=== PATIENT | male | born 1960 | race African-American/Black ===

== ENCOUNTER 2019-07-28 13:17 | Inpatient (IN) | payer OTHER ==
[2019-07-28 14:14] VITALS: BMI 23.4
--- NOTE | 2019-07-28 16:45 | HP ---
CIWA Score Nausea/Vomitin Muscle Tremors: 3 Anxiety: 2 Agitation: 2 Paroxysmal Sweats: 2 Orientation: 0-Oriented Tacttile Disturbances: 2-Mild Itch/Numbness/Burn Auditory Disturbances: 0-None Visual Disturbances: 0-None Headache: 2-Mild CIWA-Ar Total Score: 15 - Admission Criteria OASAS Guidelines: Admission for Medically Managed Detox: Requires at least one of the followin. CIWA greater than 12 2. Seizures within the past 24 hours 3. Delirium tremens within the past 24 hours 4. Hallucinations within the past 24 hours 5. Acute intervention needed for co occurring medical disorder 6. Acute intervention needed for co occurring psychiatric disorder 7. Severe withdrawal that cannot be handled at a lower level of care (continued vomiting, continued diarrhea, abnormal vital signs) requiring intravenous medication and/or fluids 8. Patient presents the following: CIWA greater than 12 Admission Criteria Met: Admission criteria met Admission ROS [facility] Chief Complaint: I am here for detox from alcohol Allergies/Adverse Reactions: Allergies Allergy/AdvReac Type Severity Reaction Status Date / Time No Known Allergies Allergy Verified 07/28/19 14:00 History of Present Illness: 58 year old man presents or detox from alcohol, he reports his last treatment was 2 years ago in [place]. He denies blackouts or seizures. Patient was seen in the ED at [facility] this morning for detox and kidney pain , he was hydrated and sent here for detox. Patient reports chronic kidney stone for which he was hospitalized for 4 days about 6 weeks ago. Exam Limitations: No Limitations - Ebola screening Have you traveled outside of the country in the last 21 days: No (N) Have you had contact with anyone from an Ebola affected area: No Have you been sick,other than usual withdrawal symptoms: No Do you have a fever: No - Review of Systems Constitutional: Loss of Appetite, Changes in sleep EENT: reports: No Symptoms Reported Respiratory: reports: No Symptoms reported Cardiac: reports: No Symptoms Reported GI: reports: Diarrhea, Nausea, Vomiting : reports: No Symptoms Reported Musculoskeletal: reports: Back Pain, Joint Pain, Muscle Pain Integumentary: reports: No Symptoms Reported Neuro: reports: Headache, Numbness, Tremors Endocrine: reports: No Symptoms Reported Hematology: reports: No Symptoms Reported Psychiatric: reports: No Sypmtoms Reported Other Systems: Reviewed and Negative Patient History - Patient Medical History Hx Anemia: No Hx Asthma: No Hx Chronic Obstructive Pulmonary Disease (COPD): No Hx Cancer: No Hx Cardiac Disorders: No Hx Congestive Heart Failure: No Hx Hypertension: Yes Hx Hypercholesterolemia: Yes Hx Pacemaker: No HX Cerebrovascular Accident: No Hx Seizures: No Hx Dementia: No Hx Diabetes: No Hx Gastrointestinal Disorders: No Hx Liver Disease: No Hx Genitourinary Disorders: Yes (BPH) Hx Sexually Transmitted Disorders: No Hx Renal Disease (ESRD): No Hx Thyroid Disease: No Hx Human Immunodeficiency Virus (HIV): Yes Hx Hepatitis C: No Hx Depression: No Hx Suicide Attempt: No Hx Bipolar Disorder: No Hx Schizophrenia: No - Patient Surgical History Past Surgical History: Yes Hx Neurologic Surgery: No Hx Cataract Extraction: No Hx Cardiac Surgery: No Hx Lung Surgery: No Hx Breast Surgery: No Hx Breast Biopsy: No Hx Abdominal Surgery: No Hx Appendectomy: No Hx Cholecystectomy: No Hx Genitourinary Surgery: No Hx Section: No Hx Orthopedic Surgery: Yes (left knee replacement in 2012) Anesthesia Reaction: No - PPD History Previous Implant?: Yes Documented Results: Negative w/o proof Implanted On Prior R Admission?: No PPD to be Administered?: Yes - Smoking Cessation Smoking history: Current every day smoker Have you smoked in the past 12 months: Yes Aproximately how many cigarettes per day: 10 Hx Chewing Tobacco Use: No Initiated information on smoking cessation: Yes 'Breaking Loose' booklet given: 07/28/19 - Substances abused Alcohol Substance route: Oral Frequency: Daily Amount used: 1pint of Rosangela Age of first use: 23 Date of last use: 07/27/19 Crack Substance route: Smoking Frequency: Daily Amount used: $100 Age of first use: 33 Date of last use: 07/27/19 Admission Physical Exam BHS - Vital Signs Vital Signs: Vital Signs - 24 hr 07/28/19 14:10 Temperature 97.0 F L Pulse Rate 66 Respiratory 14 Rate Blood Pressure 131/69 - Physical General Appearance: Yes: No Apparent Distress HEENTM: Yes: EOMI, Hearing grossly Normal, Normal ENT Inspection, Normocephalic , Normal Voice, Pharynx Normal Respiratory: Yes: Chest Non-Tender, Lungs Clear, Normal Breath Sounds, No Respiratory Distress Neck: Yes: No masses,lesions,Nodules, Supple Breast: Yes: Breast Exam Deferred Cardiology: Yes: Regular Rhythm, Regular Rate, S1, S2 Abdominal: Yes: Normal Bowel Sounds, Non Tender, Soft Genitourinary: Yes: Hesitency Back: Yes: Muscle Spasm Musculoskeletal: Yes: Back pain, Muscle Pain Extremities: Yes: Tremors 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 NML intact, Fully Oriented, Alert, Normal Mood/ Affect, Normal Response Integumentary: Yes: Diaphoresis Lymphatic: Yes: Within Normal Limits - Diagnostic (1) Uncomplicated alcohol dependence Current Visit: Yes Status: Acute (2) Nicotine dependence Current Visit: Yes Status: Acute Qualifiers: Nicotine product type: cigarettes Substance use status: uncomplicated Qualified Code(s): F17.210 - Nicotine dependence, cigarettes, uncomplicated (3) HTN (hypertension) Current Visit: Yes Status: Acute Qualifiers: Hypertension type: essential hypertension Qualified Code(s): I10 - Essential (primary) hypertension (4) Cocaine abuse Current Visit: Yes Status: Acute (5) HIV 2 (human immunodeficiency virus type 2) Current Visit: Yes Status: Acute (6) Hypercholesteremia Current Visit: Yes Status: Acute Cleared for Admission [facility] - Detox or Rehab [facility] Level of Care: Medically Managed Detox Regimen/Protocol: Librium Claeared for Rehab Admission: No Breathalyzer - Breathalyzer Breathalyzer: 0 Urine Drug Screen - Test Device Lot number: [id number] Expiration date: 04/06/21 - Control Is test valid?: Yes - Results Drug screen NEGATIVE: No Urine drug screen results: [facility]ocaine Inpatient Rehab Admission - Rehab Decision to Admit Inpatient rehab admission?: No
[2019-07-28] MEDS ORDERED: MELATONIN 5 MG TABLETS PO PRN (16:54)
[2019-07-28] MEDS ORDERED: chlordiazePOXIDE HCL 25 MG CAPSULE PO ONE (16:54)
[2019-07-28] MEDS ORDERED: MENTHOL/PHENOL 1 EACH UD MM PRN (16:54)
[2019-07-28] MEDS ORDERED: BISMUTH SUBSALICYLATE 524 MG/30 ML UD PO PRN (16:54)
[2019-07-28] MEDS ORDERED: MAGNESIUM CITRATE 300 ML BOTTLE PO PRN (16:54)
[2019-07-28] MEDS ORDERED: METHOCARBAMOL 500 MG TABLET PO PRN (16:54)
[2019-07-28] MEDS ORDERED: chlordiazePOXIDE HCL 10 MG CAPSULE PO PRN (16:54)
[2019-07-28] MEDS ORDERED: IBUPROFEN 400 MG TABLET (FP) PO PRN (16:54)
[2019-07-28] MEDS ORDERED: hydrOXYzine PAMOATE 25 MG CAPSULE (FP) PO PRN (16:54)
[2019-07-28] MEDS ORDERED: ACETAMINOPHEN 325 MG TABLET (FP) PO PRN ×2 (16:54)
[2019-07-28] MEDS ORDERED: MAGNESIUM HYDROX 2400MG/30ML ORAL SUSPENSION 30 ML CUP PO PRN (16:54)
[2019-07-28] MEDS ORDERED: MAG HYDROX/AL HYDROX/SIMETH 30 ML UNIT-DOSE CUP PO PRN (16:54)
[2019-07-28] MEDS ORDERED: NICOTINE POLACRILEX 4 MG GUM BUC PRN (16:54)
[2019-07-28] MEDS: ATORVASTATIN CA 10 MG TABLET (FP) PO SCH (23:04)
[2019-07-28] MEDS: chlordiazePOXIDE HCL 25 MG CAPSULE PO SCH (23:04)
[2019-07-28] MEDS: THIAMINE HCL 100 MG TABLET (FP) PO SCH (23:06)
[2019-07-29] MEDS: chlordiazePOXIDE HCL 25 MG CAPSULE PO SCH ×3 (05:53→22:13)
[2019-07-29] MEDS: PRENATAL VITAMINS W/ FOLIC ACID TABLET (FP) PO SCH (09:58)
[2019-07-29] MEDS: TAMSULOSIN HCL 0.4 MG CAP PO SCH (09:58)
[2019-07-29] MEDS ORDERED: PATIENT'S OWN MEDICATION (NON-FORMULARY) (Pravastatin Sodium 40 MG) PO SCH (10:00)
--- NOTE | 2019-07-29 15:07 | PN ---
[facility] CIWA - CIWA Score Nausea/Vomitin-Mild Nausea/No Vomiting Muscle Tremors: 4-Moderate,w/Arms Extend Anxiety: 4-Mod. Anxious/Guarded Agitation: 2 Paroxysmal Sweats: 3 Orientation: 0-Oriented Tacttile Disturbances: 0-None Auditory Disturbances: 0-None Visual Disturbances: 0-None Headache: 0-None Present CIWA-Ar Total Score: 14 S Progress Note (SOAP) Subjective: Diarrhea, interrupted sleep Objective: 07/29/19 15:03 Last Vital Signs Temp Pulse Resp BP Pulse Ox 98.2 F 73 18 144/73 07/29/19 13:20 07/29/19 13:20 07/29/19 13:20 07/29/19 13:20 Elevated b/p 144/73 (has htn, on medication) No admission lab results available Assessment: 07/29/19 15:05 Withdrawal sxs Plan: Continue detox Encouraged PO water hydration HTN: continue HCTZ, monitor b/p
[2019-07-29] MEDS: HYDROCHLOROTHIAZIDE 50 MG TABLET PO SCH (16:17)
[2019-07-29] MEDS: ATORVASTATIN CA 10 MG TABLET (FP) PO SCH (22:11)
[2019-07-29] MEDS: THIAMINE HCL 100 MG TABLET (FP) PO SCH (22:11)
[2019-07-30] MEDS: chlordiazePOXIDE 5 MG CAPSULE PO SCH ×3 (05:47→21:03)
--- NOTE | 2019-07-30 09:50 | PN ---
S CIWA - CIWA Score Nausea/Vomitin-Mild Nausea/No Vomiting Muscle Tremors: 2 Anxiety: 2 Agitation: 2 Paroxysmal Sweats: No Perspiration Orientation: 0-Oriented Tacttile Disturbances: 0-None Auditory Disturbances: 0-None Visual Disturbances: 0-None Headache: 1-Very Mild CIWA-Ar Total Score: 8 BHS Progress Note (SOAP) Subjective: alert,irritable,anxious,interrupted sleep,pain in the body Objective: 07/30/19 09:45 Vital Signs Temperature 98.1 F 07/30/19 06:00 Pulse Rate 65 07/30/19 06:00 Respiratory Rate 18 07/30/19 06:00 Blood Pressure 137/70 07/30/19 06:00 O2 Sat by Pulse Oximetry (%) 07/30/19 11:56 labs pending Assessment: 07/30/19 11:56 withdrawal symptom Plan: continue detox librium regimen
[2019-07-30] MEDS: HYDROCHLOROTHIAZIDE 50 MG TABLET PO SCH (11:22)
[2019-07-30] MEDS: PRENATAL VITAMINS W/ FOLIC ACID TABLET (FP) PO SCH (11:22)
[2019-07-30] MEDS: TAMSULOSIN HCL 0.4 MG CAP PO SCH (11:22)
[2019-07-30] MEDS: PREZCOBIX PO SCH (11:22)
[2019-07-30] MEDS: PATIENT'S OWN MEDICATION (NON-FORMULARY) (Abacavir Sulfate/Lamivudine [Abacavir-Lamivudine PO SCH (11:23)
[2019-07-30 12:41] LABS: HEMATOCRIT 34.4 % (35.4-49); HEMOGLOBIN 11.3 GM/dL (11.7-16.9); MCH 32.9 pg (25.7-33.7); MCHC 32.9 g/dl (32.0-35.9); MEAN CELL VOLUME 99.8 fl (80-96); MEAN PLT VOLUME 10.7 fl (7.5-11.1); PLATELET COUNT 160 K/MM3 (134-434); RBC 3.44 M/mm3 (4.00-5.60); RDW 14.2 % (11.9-15.9); WHITE BLOOD COUNT 5.6 K/mm3 (4.0-10.0)
[2019-07-30 12:53] LABS: ALBUMIN 2.8 g/dl (3.4-5.0); BILIRUBIN,TOTAL 0.2 mg/dL (0.2-1); BLOOD UREA NITROGEN 14.8 mg/dL (7-18); CALCIUM 8.8 mg/dL (8.5-10.1); CREATININE 1.2 mg/dL (0.55-1.3); POTASSIUM 3.8 mmol/L (3.5-5.1); TOT PROT 5.5 g/dl (6.4-8.2)
[2019-07-30] MEDS: THIAMINE HCL 100 MG TABLET (FP) PO SCH (21:03)
[2019-07-30] MEDS: ATORVASTATIN CA 10 MG TABLET (FP) PO SCH (21:03)
[2019-07-31] MEDS ORDERED: chlordiazePOXIDE HCL 10 MG CAPSULE PO PRN
[2019-07-31] MEDS: chlordiazePOXIDE HCL 10 MG CAPSULE PO SCH ×3 (05:32→21:11)
[2019-07-31] MEDS: TAMSULOSIN HCL 0.4 MG CAP PO SCH (10:03)
[2019-07-31] MEDS: HYDROCHLOROTHIAZIDE 25 MG TABLET (FP) PO SCH (10:03)
[2019-07-31] MEDS: PRENATAL VITAMINS W/ FOLIC ACID TABLET (FP) PO SCH (10:03)
[2019-07-31] MEDS: PREZCOBIX PO SCH (10:04)
[2019-07-31] MEDS: PATIENT'S OWN MEDICATION (NON-FORMULARY) (Abacavir Sulfate/Lamivudine [Abacavir-Lamivudine PO SCH (11:06)
--- NOTE | 2019-07-31 16:17 | PN ---
S CIWA - CIWA Score Nausea/Vomitin-No Nausea/No Vomiting Muscle Tremors: None Anxiety: 3 Agitation: 2 Paroxysmal Sweats: No Perspiration Orientation: 0-Oriented Tacttile Disturbances: 0-None Auditory Disturbances: 1-Very Mild Visual Disturbances: 0-None Headache: 0-None Present CIWA-Ar Total Score: 6 BHS Progress Note (SOAP) Subjective: Body Aches. Objective: PATIENT A & O X 3, OBSERVED AMBULATING ON DETOX UNIT UNASSISTED. IN NO ACUTE DISTRESS. 07/31/19 16:15 Vital Signs Temperature 98.1 F 07/31/19 13:37 Pulse Rate 79 07/31/19 13:37 Respiratory Rate 18 07/31/19 13:37 Blood Pressure 150/95 07/31/19 13:37 O2 Sat by Pulse Oximetry (%) Laboratory Tests 07/30/19 07/30/19 07/30/19 10:30 10:30 10:30 WBC 5.6 RBC 3.44 L Hgb 11.3 L Hct 34.4 L MCV 99.8 H MCH 32.9 MCHC 32.9 RDW 14.2 Plt Count 160 MPV 10.7 Sodium 144 Potassium 3.8 Chloride 112 H Carbon Dioxide 28 Anion Gap 5 L BUN 14.8 Creatinine 1.2 Est GFR (CKD-EPI)AfAm 75.72 Est GFR (CKD-EPI)NonAf 65.33 Random Glucose 128 H Calcium 8.8 Total Bilirubin 0.2 AST 16 ALT 30 Alkaline Phosphatase 69 Total Protein 5.5 L Albumin 2.8 L RPR Titer Nonreactive LABS NOTED. RESULTS OF DETOX ADMISSION QFT /TB TEST PENDING. 07/31/19 16:16 Assessment: 07/31/19 16:16 WITHDRAWAL SYMPTOMS. ANEMIA. 07/31/19 16:17 Plan: CONTINUE DETOX. PATIENT IS CURRENTLY RECEIVING DAILY MVI CONTAINING B VITAMINS AND IRON WHILE ADMITTED FOR DETOX. PATIENT SCHEDULED FOR D/C FROM DETOX UNIT TOMORROW.
[2019-07-31] MEDS: THIAMINE HCL 100 MG TABLET (FP) PO SCH (21:10)
[2019-07-31] MEDS: ATORVASTATIN CA 10 MG TABLET (FP) PO SCH (21:11)
[2019-08-01] MEDS ORDERED: chlordiazePOXIDE HCL 10 MG CAPSULE PO ONE (05:00)
[2019-08-01 08:51] VITALS: BP 141/79; PULSE 70; TEMP 97.6
--- NOTE | 2019-08-01 09:36 | DS ---
[facility] Detox Discharge Summary Admission Date: 07/28/19 Discharge Date: 08/01/19 - History Present History: Alcohol Dependence, Cocaine Dependence - Physical Exam Results Vital Signs: Vital Signs Temperature 97.6 F 08/01/19 08:51 Pulse Rate 70 08/01/19 08:51 Respiratory Rate 18 08/01/19 08:51 Blood Pressure 141/79 08/01/19 08:51 O2 Sat by Pulse Oximetry (%) - Treatment Hospital Course: Detox Protocol Followed, Detoxed Safely, Responded well, Discharged Condition Good, Rehab Referral Accepted Patient has Accepted a Rehab Referral to: referral provided - Medication Discharge Medications: Ambulatory Orders Abacavir Sulfate/Lamivudine [Abacavir-Lamivudine 600-300 mg] 600 mg PO DAILY Hydrochlorothiazide [Hctz -] 50 mg PO DAILY 07/28/19 Pravastatin Sodium [Pravachol (Nf)] 40 mg PO DAILY 07/28/19 Prezcobix 800 mg-150 mg Tablet 800 mg PO DAILY 07/28/19 Tamsulosin HCl 0.4 mg PO DAILY 07/28/19 - Diagnosis (1) Anemia Current Visit: Yes Status: Chronic Qualifiers: Anemia type: unspecified type Qualified Code(s): D64.9 - Anemia, unspecified (2) Cocaine abuse Current Visit: Yes Status: Chronic (3) HIV 2 (human immunodeficiency virus type 2) Current Visit: Yes Status: Chronic (4) HTN (hypertension) Current Visit: Yes Status: Acute Qualifiers: Hypertension type: essential hypertension Qualified Code(s): I10 - Essential (primary) hypertension (5) Hypercholesteremia Current Visit: Yes Status: Acute (6) Nicotine dependence Current Visit: Yes Status: Acute Qualifiers: Nicotine product type: cigarettes Substance use status: uncomplicated Qualified Code(s): F17.210 - Nicotine dependence, cigarettes, uncomplicated (7) Uncomplicated alcohol dependence Current Visit: Yes Status: Chronic - AMA Did Patient Leave Against Medical Advice: No
[2019-08-01] MEDS: HYDROCHLOROTHIAZIDE 25 MG TABLET (FP) PO SCH (09:52)
[2019-08-01] MEDS: PRENATAL VITAMINS W/ FOLIC ACID TABLET (FP) PO SCH (09:52)
[2019-08-01] MEDS: TAMSULOSIN HCL 0.4 MG CAP PO SCH (09:52)
[2019-08-01] MEDS: PATIENT'S OWN MEDICATION (NON-FORMULARY) (Abacavir Sulfate/Lamivudine [Abacavir-Lamivudine PO SCH (09:55)
[2019-08-01] MEDS: PREZCOBIX PO SCH (09:55)
== END 2019-08-01 11:38 | disposition home or self-care (01) | DRG 897 ==
LOC: EDBD 13:17 → YASAS 13:17 → Y6N 17:31
PROVIDERS: ADMIT Surgery; ATTEND Surgery
PROC: HZ2ZZZZ Detoxification Services for Substance Abuse Treatment (ICD-10-PCS; principal; 2019-07-28)
DX: F10.230 Alcohol dependence with withdrawal, uncomplicated (principal); B97.35 Human immunodeficiency virus, type 2 [HIV 2] as the cause of diseases classified elsewhere; F14.10 Cocaine abuse, uncomplicated; F17.210 Nicotine dependence, cigarettes, uncomplicated; I10 Essential (primary) hypertension; E78.00 Pure hypercholesterolemia, unspecified; D64.9 Anemia, unspecified; N40.0 Benign prostatic hyperplasia without lower urinary tract symptoms; Z96.651 Presence of right artificial knee joint
CPT/HCPCS: 36415; 80053; 85027; 86480; 86593

== ENCOUNTER 2019-10-19 11:51 | Inpatient (IN) | payer OTHER ==
[2019-10-19 12:56] VITALS: BMI 24.2
--- NOTE | 2019-10-19 13:48 | HP ---
CIWA Score Nausea/Vomitin-No Nausea/No Vomiting Muscle Tremors: None Anxiety: 0-No Anxiety, at Ease Agitation: 0-Normal Activity Paroxysmal Sweats: No Perspiration Orientation: 1-Uncertain about Date Tacttile Disturbances: 0-None Auditory Disturbances: 0-None Visual Disturbances: 0-None Headache: 0-None Present CIWA-Ar Total Score: 1 - Admission Criteria OASAS Guidelines: Admission for Medically Managed Detox: Requires at least one of the followin. CIWA greater than 12 2. Seizures within the past 24 hours 3. Delirium tremens within the past 24 hours 4. Hallucinations within the past 24 hours 5. Acute intervention needed for co occurring medical disorder 6. Acute intervention needed for co occurring psychiatric disorder 7. Severe withdrawal that cannot be handled at a lower level of care (continued vomiting, continued diarrhea, abnormal vital signs) requiring intravenous medication and/or fluids 8. Admitting History and Physical - Smoking History Smoking history: Current every day smoker Have you smoked in the past 12 months: Yes Aproximately how many cigarettes per day: 10 Admission ROS [facility] Allergies/Adverse Reactions: Allergies Allergy/AdvReac Type Severity Reaction Status Date / Time No Known Allergies Allergy Verified 10/19/19 12:42 History of Present Illness: pt here for rehab from cocaine and etoh use ,latest use 2 days ago , went to [facility], reports had " a few of vodka " the night prior to going to the hospital 10/17/19 , reports up to 1 pint /day started 2 years ago after he stopped working, progressively increased , denies seizures , blackouts , occasional tremors . reports he was in [facility] for detox and rehab when he had pain and was taken to the ER dx w/ nephrolithaisis, has scheduled surgery for 10/25/19 . cocaine :reports occasional use tobacco : occasional denies other illicits PMHX : tkr Exam Limitations: No Limitations - Ebola screening Have you traveled outside of the country in the last 21 days: No Have you had contact with anyone from an Ebola affected area: No Do you have a fever: No - Review of Systems Constitutional: No Symptoms Reported EENT: reports: Other (glasses , denies dysphagia) Respiratory: reports: No Symptoms reported Cardiac: reports: No Symptoms Reported GI: reports: No Symptoms Reported : reports: Dysuria (slow stream), Flank Pain Musculoskeletal: reports: No Symptoms Reported Integumentary: reports: No Symptoms Reported Neuro: reports: No Symptoms reported Endocrine: reports: No Symptoms Reported Hematology: reports: No Symptoms Reported Psychiatric: reports: Orientated x3 Patient History - Patient Medical History Hx Anemia: No Hx Asthma: No Hx Chronic Obstructive Pulmonary Disease (COPD): No Hx Cancer: No Hx Cardiac Disorders: No Hx Congestive Heart Failure: No Hx Hypertension: Yes Hx Hypercholesterolemia: Yes Hx Pacemaker: No HX Cerebrovascular Accident: No Hx Seizures: No Hx Dementia: No Hx Diabetes: No Hx Gastrointestinal Disorders: No Hx Liver Disease: No Hx Genitourinary Disorders: No Hx Sexually Transmitted Disorders: No Hx Renal Disease (ESRD): No Hx Thyroid Disease: No Hx Human Immunodeficiency Virus (HIV): Yes Hx Hepatitis C: No Hx Depression: No Hx Suicide Attempt: No Hx Bipolar Disorder: No Hx Schizophrenia: No - Patient Surgical History Past Surgical History: Yes Hx Neurologic Surgery: No Hx Cataract Extraction: No Hx Cardiac Surgery: No Hx Lung Surgery: No Hx Breast Surgery: No Hx Breast Biopsy: No Hx Abdominal Surgery: No Hx Appendectomy: No Hx Cholecystectomy: No Hx Genitourinary Surgery: No Hx Section: No Hx Orthopedic Surgery: Yes (left knee replacement in 2013) Anesthesia Reaction: No - Smoking Cessation Smoking history: Current some day smoker Have you smoked in the past 12 months: Yes Aproximately how many cigarettes per day: 10 Hx Chewing Tobacco Use: No Initiated information on smoking cessation: Yes 'Breaking Loose' booklet given: 10/19/19 - Substances abused Alcohol Substance route: Oral Frequency: Daily Amount used: 1pint of VODKA/GIN Age of first use: 23 Date of last use: 10/17/19 Crack Substance route: Smoking Frequency: 1-2 times per week Amount used: $20 Age of first use: 33 Date of last use: 10/17/19 Admission Physical Exam BHS - Vital Signs Vital Signs: Vital Signs - 24 hr 10/19/19 10/19/19 12:36 13:10 Temperature 97.9 F 97.9 F Pulse Rate 68 68 Respiratory 20 20 Rate Blood Pressure 133/72 133/72 - Physical General Appearance: Yes: No Apparent Distress HEENTM: Yes: EOMI, Hearing grossly Normal, Normocephalic, Normal Voice Respiratory: Yes: Chest Non-Tender, Lungs Clear, Normal Breath Sounds, No Respiratory Distress, No Accessory Muscle Use Neck: Yes: No masses,lesions,Nodules, Trachea in good position Cardiology: Yes: Regular Rhythm, Regular Rate, S1, S2 Abdominal: Yes: Non Tender, Soft Musculoskeletal: Yes: Gait Steady Extremities: Yes: Normal Range of Motion, Non-Tender Neurological: Yes: Alert, Normal Mood/Affect Integumentary: Yes: Warm - Diagnostic (1) Alcohol dependence Current Visit: Yes Status: Chronic Qualifiers: Substance use status: uncomplicated Qualified Code(s): F10.20 - Alcohol dependence, uncomplicated (2) Cocaine abuse, episodic use Current Visit: Yes Status: Chronic Breathalyzer - Breathalyzer Breathalyzer: 0 Urine Drug Screen - Test Device Lot number: [id number] Expiration date: 06/06/21 - Control Is test valid?: Yes - Results Drug screen NEGATIVE: No Urine drug screen results: [facility]-Cocaine Inpatient Rehab Admission - Rehab Decision to Admit Inpatient rehab admission?: Yes - Initial Determination Are CD services needed?: Yes Free of communicable disease: Yes Not in need of hospitalization: Yes - Rehab Admission Criteria Previous failed treatment: No Poor recovery environment: No Comorbidities: Yes Lacks judgement: Yes Patient is meeting Inpatient Rehab admission criteria:: Yes
[2019-10-19] MEDS ORDERED: PATIENT'S OWN MEDICATION (NON-FORMULARY) (Abacavir Sulfate/Lamivudine [Abacavir-Lamivudine PO SCH (14:00)
[2019-10-19] MEDS ORDERED: hydrOXYzine PAMOATE 25 MG CAPSULE (FP) PO PRN (14:11)
[2019-10-19] MEDS ORDERED: MENTHOL/PHENOL 1 EACH UD MM PRN (14:11)
[2019-10-19] MEDS ORDERED: MAG HYDROX/AL HYDROX/SIMETH 30 ML UNIT-DOSE CUP PO PRN (14:11)
[2019-10-19] MEDS ORDERED: ACETAMINOPHEN 325 MG TABLET (FP) PO PRN (14:11)
[2019-10-19] MEDS ORDERED: P-EPHED 60MG/TRIPROLIDI 2.5MG TABLET PO PRN (14:11)
[2019-10-19] MEDS ORDERED: MAGNESIUM HYDROX 2400MG/30ML ORAL SUSPENSION 30 ML CUP PO PRN (14:11)
[2019-10-19] MEDS ORDERED: LOPERAMIDE HCL 2 MG CAPSULE PO PRN (14:11)
[2019-10-19] MEDS ORDERED: guaiFENesin 200 MG/10 ML 10 ML UNIT-DOSE CUPS PO PRN (14:11)
[2019-10-19] MEDS ORDERED: MAGNESIUM CITRATE 300 ML BOTTLE PO PRN (14:11)
[2019-10-19] MEDS ORDERED: IBUPROFEN 400 MG TABLET (FP) PO PRN (14:11)
[2019-10-19] MEDS ORDERED: BENZOCAINE 20 % GEL TUBE MM PRN (14:16)
--- NOTE | 2019-10-19 15:29 | PN ---
[facility] Progress Note Note: Patient admitted to [facility] from the [facility]. One previous admission; there were no major medical or psychiatric issues during that visit. Home medications and orders reviewed, all complete. Vital Signs (72 hours) 10/19/19 10/19/19 12:36 13:10 Temperature 97.9 F 97.9 F Pulse Rate 68 68 Respiratory 20 20 Rate Blood Pressure 133/72 133/72 Substance use treatment Maintain safety
[2019-10-19] MEDS ORDERED: ABACAVIR SULFATE 300 MG TABLET PO ONE (16:30)
[2019-10-19] MEDS: TAMSULOSIN HCL 0.4 MG PO SCH (16:32)
[2019-10-19] MEDS ORDERED: PT OWN MED DRAWER 7, Y5N ONE ×2 (16:32→21:57)
[2019-10-19 16:59] LABS: HEMATOCRIT 36.3 % (35.4-49); MCH 32.3 pg (25.7-33.7); MEAN CELL VOLUME 97.9 fl (80-96); MEAN PLT VOLUME 10.6 fl (7.5-11.1); PLATELET COUNT 135 K/MM3 (134-434); RBC 3.71 M/mm3 (4.00-5.60); RDW 13.4 % (11.9-15.9); WHITE BLOOD COUNT 6.4 K/mm3 (4.0-10.0)
[2019-10-19 17:09] LABS: BILIRUBIN,TOTAL 0.2 mg/dL (0.2-1); BLOOD UREA NITROGEN 29.4 mg/dL (7-18); CREATININE 1.5 mg/dL (0.55-1.3); POTASSIUM 3.5 mmol/L (3.5-5.1); TOT PROT 6.3 g/dl (6.4-8.2)
[2019-10-19] MEDS: PREZCOBIX PO SCH (17:30)
[2019-10-19] MEDS: HYDROCHLOROTHIAZIDE 50 MG PO SCH (17:30)
[2019-10-19] MEDS: MELATONIN 5 MG TABLETS PO PRN (21:13)
[2019-10-19] MEDS: THIAMINE HCL 100 MG TABLET (FP) PO SCH (21:13)
[2019-10-19] MEDS: PATIENT'S OWN MEDICATION (NON-FORMULARY) (Pravastatin Sodium 40 MG) PO SCH (21:14)
[2019-10-20] MEDS: PREZCOBIX PO SCH (07:18)
[2019-10-20] MEDS: TAMSULOSIN HCL 0.4 MG PO SCH (10:00)
[2019-10-20] MEDS: ABACAVIR SULFATE 300 MG TABLET PO SCH (10:00)
[2019-10-20] MEDS: PRENATAL VITAMINS W/ FOLIC ACID TABLET (FP) PO SCH (10:01)
[2019-10-20] MEDS: HYDROCHLOROTHIAZIDE 50 MG PO SCH (10:01)
[2019-10-20] MEDS ORDERED: PT OWN MED DRAWER 7, Y5N ONE ×2 (18:45→21:20)
[2019-10-20] MEDS: MELATONIN 5 MG TABLETS PO PRN (21:19)
[2019-10-20] MEDS: THIAMINE HCL 100 MG TABLET (FP) PO SCH (21:19)
[2019-10-20] MEDS: PATIENT'S OWN MEDICATION (NON-FORMULARY) (Pravastatin Sodium 40 MG) PO SCH (21:20)
[2019-10-21] MEDS ORDERED: PT OWN MED DRAWER 7, Y5N ONE ×3 (03:26→21:18)
[2019-10-21] MEDS: PREZCOBIX PO SCH (07:16)
[2019-10-21] MEDS: TAMSULOSIN HCL 0.4 MG PO SCH (09:53)
[2019-10-21] MEDS: HYDROCHLOROTHIAZIDE 50 MG PO SCH (09:53)
[2019-10-21] MEDS: ABACAVIR SULFATE 300 MG TABLET PO SCH (09:54)
[2019-10-21] MEDS: PRENATAL VITAMINS W/ FOLIC ACID TABLET (FP) PO SCH (09:54)
[2019-10-21] MEDS: MELATONIN 5 MG TABLETS PO PRN (21:17)
[2019-10-21] MEDS: THIAMINE HCL 100 MG TABLET (FP) PO SCH (21:17)
[2019-10-21] MEDS: PATIENT'S OWN MEDICATION (NON-FORMULARY) (Pravastatin Sodium 40 MG) PO SCH (21:18)
[2019-10-22] MEDS: PREZCOBIX PO SCH (07:05)
[2019-10-22] MEDS: TAMSULOSIN HCL 0.4 MG PO SCH (10:06)
[2019-10-22] MEDS: PRENATAL VITAMINS W/ FOLIC ACID TABLET (FP) PO SCH (10:06)
[2019-10-22] MEDS: HYDROCHLOROTHIAZIDE 50 MG PO SCH (10:08)
[2019-10-22] MEDS: ABACAVIR SULFATE 300 MG TABLET PO SCH (10:09)
[2019-10-22] MEDS ORDERED: PT OWN MED DRAWER 7, Y5N ONE (10:09)
[2019-10-22 12:51] LABS: EPI CELLS 0.2 /HPF (0-5/HPF); HYALINE CASTS 2 /lpf (0-8); URINE APPEARANCE CLEAR; URINE BACTERIA 37.7 /hpf (NEGATIVE); URINE BILIRUBIN NEGATIVE (NEGATIVE); URINE COLOR YELLOW; URINE GLUCOSE (UA) NEGATIVE (NEGATIVE); URINE KETONE NEGATIVE (NEGATIVE); URINE LEUK ESTERASE TRACE (NEGATIVE); URINE NITRITE NEGATIVE (NEGATIVE); URINE PROTEIN TRACE (NEGATIVE); URINE RBC 10 /hpf (0-4); URINE UROBILINOGEN 0.2 mg/dL (0.2-1.0); URINE WBC 37 /hpf (0-5)
[2019-10-22] MEDS: THIAMINE HCL 100 MG TABLET (FP) PO SCH (21:43)
[2019-10-22] MEDS: PATIENT'S OWN MEDICATION (NON-FORMULARY) (Pravastatin Sodium 40 MG) PO SCH (21:44)
[2019-10-23] MEDS: PREZCOBIX PO SCH (07:15)
[2019-10-23] MEDS: ABACAVIR SULFATE 300 MG TABLET PO SCH (07:15)
[2019-10-23] MEDS ORDERED: PT OWN MED DRAWER 7, Y5N ONE ×2 (09:31→21:24)
[2019-10-23] MEDS: HYDROCHLOROTHIAZIDE 50 MG PO SCH (09:36)
[2019-10-23] MEDS: PRENATAL VITAMINS W/ FOLIC ACID TABLET (FP) PO SCH (09:36)
[2019-10-23] MEDS: TAMSULOSIN HCL 0.4 MG PO SCH (09:36)
--- NOTE | 2019-10-23 14:28 | DS ---
[facility] Rehab Discharge Summary - [facility] Rehab Discharge Summary Admission Date: 10/19/19 Discharge Date: 10/23/19 - History Present History: Alcohol dependence, Cocaine dependence Pertinent Past History: pt here for rehab from cocaine and etoh use went to [facility], reports had " a few of vodka " the night prior to going to the hospital 10/17/19 , reports up to 1 pint /day started 2 years ago after he stopped working, progressively increased , denies seizures , blackouts , occasional tremors . reports he was in [facility] for detox and rehab when he had pain and was taken to the ER dx w/ nephrolithaisis, has scheduled surgery for 10/25/19 . cocaine :reports occasional use tobacco : occasional denies other illicits - Discharge Physical Exam Vital Signs: Vital Signs Temperature 98.4 F 10/23/19 12:00 Pulse Rate 72 10/23/19 12:00 Respiratory Rate 18 10/23/19 12:00 Blood Pressure 128/79 10/23/19 12:00 O2 Sat by Pulse Oximetry (%) Pertinent Admission Physical Exam Findings: Physical General Appearance: No Apparent Distress HEENTM: Normocephalic, Respiratory: Lungs Clear, Neck: Trachea in good position Cardiology: Y S1, S2 Abdominal: +BS< Non Tender, Soft Musculoskeletal: full ROM,Gait Steady Neurological: CN 2-12 intact. Integumentary: Yes: Warm - Treatment Discharge Condition: Rehabilitated safely (Medically stable for discharge. Patient will not be going to aftercare; he is scheduled for surgery on 10/25.) Hospital Course: attended groups, had 1:1 with counselor. Was adherent to his medication regimen and treatment plan; he had not significant medical issues while in rehab. - Medication Discharge Medications: Ambulatory Orders Prezcobix 800 mg-150 mg Tablet 800 mg PO DAILY 07/28/19 Abacavir Sulfate/Lamivudine [Abacavir-Lamivudine 600-300 mg] 600 mg PO DAILY # 30 tablet 10/23/19 Darunavir/Cobicistat [Prezcobix 800 mg-150 mg Tablet] 1 each PO DAILY #30 tablet 10/23/19 Hydrochlorothiazide [Hctz -] 50 mg PO DAILY #14 tablet 10/23/19 Pravastatin Sodium [Pravachol -] 40 mg PO DAILY #14 tablet 10/23/19 Tamsulosin HCl 0.4 mg PO DAILY #14 capsule 10/23/19 - Medication-Assisted Treatment (MAT) Medication-Assisted Treatment (MAT): No - Discharge Instructions Diet, activity, other medical instructions: Diet: as tolerated Activity: as tolerated Other medical instructions: Please follow up with 12 step program after to discharge. - Diagnosis (1) Alcohol dependence Current Visit: Yes Status: Chronic Qualifiers: Substance use status: uncomplicated Qualified Code(s): F10.20 - Alcohol dependence, uncomplicated (2) Cocaine abuse, episodic use Current Visit: Yes Status: Chronic - Follow-up Referral Minutes to complete discharge: 20 - AMA Did Patient Leave Against Medical Advice: No
[2019-10-23] MEDS: THIAMINE HCL 100 MG TABLET (FP) PO SCH (21:23)
[2019-10-23] MEDS: MELATONIN 5 MG TABLETS PO PRN (21:23)
[2019-10-23] MEDS: PATIENT'S OWN MEDICATION (NON-FORMULARY) (Pravastatin Sodium 40 MG) PO SCH (21:24)
[2019-10-24] MEDS ORDERED: PT OWN MED DRAWER 7, Y5N ONE ×3 (04:13→09:42)
[2019-10-24 06:53] VITALS: BP 127/66; PULSE 65; TEMP 97.7
[2019-10-24] MEDS: ABACAVIR SULFATE 300 MG TABLET PO SCH (07:03)
[2019-10-24] MEDS: PREZCOBIX PO SCH (07:03)
[2019-10-24] MEDS: HYDROCHLOROTHIAZIDE 50 MG PO SCH (09:39)
[2019-10-24] MEDS: PRENATAL VITAMINS W/ FOLIC ACID TABLET (FP) PO SCH (09:39)
[2019-10-24] MEDS: TAMSULOSIN HCL 0.4 MG PO SCH (09:39)
== END 2019-10-24 09:55 | disposition home or self-care (01) | DRG 895 ==
LOC: YASAS 11:51 → Y3W 14:45
PROVIDERS: ADMIT Neuromusculoskeletal Medicine & OMM; ATTEND Neuromusculoskeletal Medicine & OMM
PROC: HZ42ZZZ Group Counseling for Substance Abuse Treatment, Cognitive-Behavioral (ICD-10-PCS; principal; 2019-10-19)
DX: F10.20 Alcohol dependence, uncomplicated (principal); F14.10 Cocaine abuse, uncomplicated; F17.210 Nicotine dependence, cigarettes, uncomplicated; I10 Essential (primary) hypertension; E78.00 Pure hypercholesterolemia, unspecified; Z21 Asymptomatic human immunodeficiency virus [HIV] infection status; Z96.652 Presence of left artificial knee joint
CPT/HCPCS: 36415; 80053; 81003; 85027; 86593